=== PATIENT | female | born 1940 | race Caucasian/White ===

== ENCOUNTER 2016-07-05 10:37 | Day surgery (SDC) | payer MEDICARE, BC ==
[~2016-07-05] VITALS: Ht 160 cm; Wt 52.9 kg
[~2016-07-05 10:37] MED LIST: ALKA-SELTZER GO1 TE1 PO; ASPIRIN 81M81 MG/TA2 PO; BYSTOLIC5 MG PO; COMBIRESP IH; CYMBALTA 60MG60 MG PO; HYZAAR 50-12.1 UDTAB PO; KLOR-CON 1010 MEQ PO; LASIX 40MG TABL40 MG PO; LEVOXYL0.025 MG PO; LEVOXYL0.05 MG PO; LIPITOR 10MG10 MG PO; MILK OF MA400 MG/52 PO; MIRALAX PA17 GM/Dose PO; NEURONTIN300 MG/CAP PO; NORCO 325 MG-7.1 TAB PO; NORVASC 5MG5 MG/TAB PO; ORTHO BIOTIC PO; PEPTO BISM262 MG/15 PO; PLAVIX 75MG TAB75 MG PO; PRESERVISION1 SGL PO; PROTONIX 40MG T40 MG PO; RT SPIRIVA18 MCG IH; STIOLTO RESPIMAT4 GM IH; STOOL SOFTENER100 M2 PO; TRIMPEX100 MG PO; TYLENOL 325MG325 MG PO; TYLENOL 500MG500 MG PO; VITAMIN D 400400 IU PO; VITAMIN D32000 I1 PO
[2016-07-05 12:09] LABS: BASO # 0.1 (0.0-0.2); BASO % 0.7 % (0.0-2.0); EOS # 0.5 (0.0-0.7); GRAN # 6.7 (1.4-6.5); GRAN % 69.8 % (42.2-75.2); HEMATOCRIT 42.7 % (37.0-47.0); HEMOGLOBIN 14.7 g/dl (12.5-16.0); LYMPH # 1.6 (1.2-3.4); LYMPH % 16.8 % (20.0-51.0); MEAN CELL VOLUME 98 fl (80.0-100.0); MEAN CORPUSCULAR HEMOGLOBIN 34 pg (27.0-31.0); MEAN CORPUSCULAR HGB CONC 34 g/dl (33.0-37.0); MEAN PLATELET VOLUME 9.5 fl (7.4-10.4); MONO # 0.7 (0.1-0.6); MONO % 7.5 % (1.7-9.3); PLATELET COUNT 302 K/mm3 (130-400); RED BLOOD COUNT 4.38 M/mm3 (4.10-5.30); REDCELL DISTRIBUTION WIDTH-CV 14.6 % (11.5-14.5); WHITE BLOOD COUNT 9.6 K/mm3 (4.8-10.8)
[2016-07-05 12:25] LABS: CALCIUM 9.8 mg/dL (8.4-10.2); CREATININE, serum 0.63 mg/dL (0.52-1.25); POTASSIUM 3.7 mmol/L (3.4-5.0)
[2016-07-05 12:30] VITALS: BP 172/69; PULSE 73; TEMP 97.7
[2016-07-05 14:00] VITALS: BP 141/58; PULSE 63; TEMP 97.7
[2016-07-05 14:15] VITALS: BP 120/61; PULSE 63
[2016-07-05 14:30] VITALS: BP 139/56; PULSE 63
[2016-07-05 14:45] VITALS: BP 147/57; PULSE 63
[2016-07-05 15:15] VITALS: BP 137/65; PULSE 64
== END 2016-07-05 15:34 | disposition home or self-care (01) ==
LOC: SDCO 10:37
PROVIDERS: Urology
DX: N13.5 Crossing vessel and stricture of ureter without hydronephrosis (principal); Z85.038 Personal history of other malignant neoplasm of large intestine; F17.210 Nicotine dependence, cigarettes, uncomplicated; J40 Bronchitis, not specified as acute or chronic; J44.9 Chronic obstructive pulmonary disease, unspecified; J43.9 Emphysema, unspecified; I10 Essential (primary) hypertension; Z93.3 Colostomy status
CPT/HCPCS: C1769; C2617; J0690; J1100; J1885; J2405; J2704; J3010; J7120; Q9967

== ENCOUNTER 2017-01-05 06:44 | Day surgery (SDC) | payer MEDICARE, BC ==
[~2017-01-05] VITALS: Ht 160 cm; Wt 54.3 kg
[2017-01-05 07:42] VITALS: BP 160/63; PULSE 66; TEMP 98.2
[2017-01-05] MEDS ORDERED: TOPROL XL 50MG50 MG PO (08:18)
[2017-01-05] MEDS ORDERED: STIOLTO RESPIMAT IH (08:21)
[2017-01-05] MEDS ORDERED: SYNTHROID0.075 MG/T PO (08:23)
[2017-01-05] MEDS ORDERED: ZOLOFT 50MG50 MG PO ×2 (08:24→08:25)
[2017-01-05] MEDS ORDERED: LYRICA 50MG CAP50 MG PO (08:25)
[2017-01-05] MEDS ORDERED: CHANTIX 1MG1 MG PO (08:27)
[2017-01-05] MEDS ORDERED: LASIX 20MG TABL20 MG PO (08:27)
[2017-01-05] MEDS ORDERED: ASPIRIN 81M81 MG/TA2 PO (08:30)
[2017-01-05 10:20] VITALS: BP 128/50; PULSE 65; TEMP 98.2
[2017-01-05 10:35] VITALS: BP 128/52; PULSE 69
[2017-01-05 10:50] VITALS: BP 139/50; PULSE 66
[2017-01-05 11:05] VITALS: BP 141/46; PULSE 63
[2017-01-05 16:46] VITALS: BP 125/56; PULSE 66; TEMP 98.6
== END 2017-01-05 11:20 | disposition home or self-care (01) ==
LOC: SDCO 06:44
DX: N13.5 Crossing vessel and stricture of ureter without hydronephrosis (principal); J44.9 Chronic obstructive pulmonary disease, unspecified; I10 Essential (primary) hypertension; I73.9 Peripheral vascular disease, unspecified; M19.90 Unspecified osteoarthritis, unspecified site; F17.210 Nicotine dependence, cigarettes, uncomplicated; F32.9 Major depressive disorder, single episode, unspecified; K21.9 Gastro-esophageal reflux disease without esophagitis; E03.9 Hypothyroidism, unspecified; Z79.01 Long term (current) use of anticoagulants; Z90.49 Acquired absence of other specified parts of digestive tract; Z85.038 Personal history of other malignant neoplasm of large intestine; Z82.49 Family history of ischemic heart disease and other diseases of the circulatory system
CPT/HCPCS: C1769; C1894; C2617; J0690; J1100; J2405; J2704; J3010; J7120

== ENCOUNTER 2017-07-27 10:56 | Day surgery (SDC) | payer MEDICARE, BC ==
[~2017-07-27] VITALS: Ht 160 cm; Wt 57.5 kg
[~2017-07-27 10:56] MED LIST changes: +CHANTIX 1MG1 MG PO; +LASIX 20MG TABL20 MG PO; +LYRICA 50MG CAP50 MG PO; +SYNTHROID0.075 MG/T PO; +TOPROL XL 50MG50 MG PO; +ZOLOFT 50MG50 MG PO
[2017-07-27 12:00] VITALS: BP 177/61; PULSE 52; TEMP 98.7
[2017-07-27 13:18] VITALS: BP 166/60; PULSE 58; TEMP 98
[2017-07-27 13:33] VITALS: BP 177/70; PULSE 56
[2017-07-27 13:48] VITALS: BP 178/56; PULSE 55
[2017-07-27 14:03] VITALS: BP 168/61; PULSE 56
== END 2017-07-27 14:30 | disposition home or self-care (01) ==
LOC: SDCO 10:56
DX: N13.5 Crossing vessel and stricture of ureter without hydronephrosis (principal); I10 Essential (primary) hypertension; N39.0 Urinary tract infection, site not specified; J43.9 Emphysema, unspecified; J42 Unspecified chronic bronchitis; F17.210 Nicotine dependence, cigarettes, uncomplicated; K21.9 Gastro-esophageal reflux disease without esophagitis; F32.9 Major depressive disorder, single episode, unspecified; E03.9 Hypothyroidism, unspecified; M19.90 Unspecified osteoarthritis, unspecified site; Z88.1 Allergy status to other antibiotic agents; Z88.8 Allergy status to other drugs, medicaments and biological substances; Z88.0 Allergy status to penicillin; Z90.49 Acquired absence of other specified parts of digestive tract; Z79.82 Long term (current) use of aspirin; Z79.01 Long term (current) use of anticoagulants; Z86.73 Personal history of transient ischemic attack (TIA), and cerebral infarction without residual deficits; Z85.038 Personal history of other malignant neoplasm of large intestine; Z82.49 Family history of ischemic heart disease and other diseases of the circulatory system
CPT/HCPCS: C1769; C2617; J0690; J1100; J1885; J2405; J2704; J3010; J7120

== ENCOUNTER 2018-02-13 10:35 | Day surgery (SDC) | payer MEDICARE, BC ==
[~2018-02-13] VITALS: Ht 157.5 cm; Wt 62.7 kg
[2018-02-13] MEDS ORDERED: STIOLTO RESPIMAT4 GM IH (11:21)
[2018-02-13] MEDS ORDERED: LASIX 20MG TABL20 MG PO (11:29)
[2018-02-13] MEDS ORDERED: FLOMAX 0.40.4 MG/CAP PO (11:30)
[2018-02-13] MEDS ORDERED: CEPHALEXIN500 M1 PO (11:31)
[2018-02-13 11:58] VITALS: BP 173/58; PULSE 64; TEMP 97.6
[2018-02-13 14:35] VITALS: BP 132/45; PULSE 59; TEMP 97.2
[2018-02-13 14:50] VITALS: BP 151/49; PULSE 56
[2018-02-13 15:05] VITALS: BP 149/50; PULSE 58
[2018-02-13 15:20] VITALS: BP 137/52; PULSE 60
== END 2018-02-13 15:35 | disposition home or self-care (01) ==
LOC: SDCO 10:35
DX: N13.5 Crossing vessel and stricture of ureter without hydronephrosis (principal); Z85.038 Personal history of other malignant neoplasm of large intestine; J43.9 Emphysema, unspecified; I10 Essential (primary) hypertension; F17.210 Nicotine dependence, cigarettes, uncomplicated; K21.9 Gastro-esophageal reflux disease without esophagitis; F32.9 Major depressive disorder, single episode, unspecified; M19.90 Unspecified osteoarthritis, unspecified site; Z90.49 Acquired absence of other specified parts of digestive tract; Z79.82 Long term (current) use of aspirin; Z79.01 Long term (current) use of anticoagulants; Z88.1 Allergy status to other antibiotic agents; Z88.8 Allergy status to other drugs, medicaments and biological substances; Z88.2 Allergy status to sulfonamides; Z88.5 Allergy status to narcotic agent; Z88.0 Allergy status to penicillin; Z92.3 Personal history of irradiation; Z86.73 Personal history of transient ischemic attack (TIA), and cerebral infarction without residual deficits; Z82.49 Family history of ischemic heart disease and other diseases of the circulatory system
CPT/HCPCS: C1769; C2617; J0690; J1100; J2405; J2704; J3010; J7120

== ENCOUNTER 2018-11-13 10:30 | Day surgery (SDC) | payer MEDICARE, BC ==
[~2018-11-13] VITALS: Ht 157.5 cm; Wt 56.7 kg
[~2018-11-13 10:30] MED LIST changes: +CEPHALEXIN500 M1 PO; +FLOMAX 0.40.4 MG/CAP PO
[2018-11-13 11:19] VITALS: BP 135/51; PULSE 68; TEMP 98.5
[2018-11-13] MEDS ORDERED: TYLENOL 325MG325 MG PO (12:21)
[2018-11-13] MEDS ORDERED: MULTI VITAMINS1 TAB PO (12:24)
[2018-11-13] MEDS ORDERED: LIPITOR 10MG10 MG PO (12:27)
[2018-11-13] MEDS ORDERED: STRIVERDI2.5 MCG/Ac IH (12:31)
[2018-11-13] MEDS ORDERED: K-TAB20 PO (12:33)
[2018-11-13] MEDS ORDERED: SYNTHROID0.088 MG/T PO (12:35)
[2018-11-13] MEDS ORDERED: PREDNISONE 5MG5 MG PO (12:38)
[2018-11-13] MEDS ORDERED: XANAX .25M0.25 MG/TA PO (12:39)
[2018-11-13] MEDS ORDERED: IPRATROPIUM BROM3 M1 IH (12:43)
[2018-11-13 14:30] VITALS: BP 155/60; PULSE 68; TEMP 97.8
--- NOTE | 2018-11-13 14:30 | NUR ---
The patient arrived back to [facility] from the recovery room at this time. The patient appears alert and oriented and denies any pain or nausea at this time. The patient has tried some ice water and now requests some coffee and a muffin. The patient's post operative vital signs were started at this time. The patient's was brought back to be at her bedside. Call light is within reach. The patient denies any further needs at this time. Will continue to monitor the patient.
[2018-11-13 14:45] VITALS: BP 152/55; PULSE 67
--- NOTE | 2018-11-13 14:45 | NUR ---
The patient appears to be tolerating the food and drink well. The patient's vital signs appear stable. The patient denies wanting anything further to eat or drink at this time.
[2018-11-13 14:58] VITALS: TEMP 98.7
[2018-11-13 15:00] VITALS: BP 158/59; PULSE 72
--- NOTE | 2018-11-13 15:00 | NUR ---
The patient voices a desire to be discharged home and use the bathroom. The patient's IV to her right anecubital was removed and a pressure dressing was applied to the site. The patient was then assisted to the bathroom with the stand by assistance of the nursing staff and appeared to tolerate the activity well. The patient voided without difficulty.
--- NOTE | 2018-11-13 15:15 | NUR ---
Discharge instructions were reviewed with the patient at this time. She verbalized understanding and has no questions for the nurse at this time. The nursing staff is to assist the patient to get dressed while her gets their private vehicle.
--- NOTE | 2018-11-13 15:30 | NUR ---
The patient was escorted out via wheelchair to a private vehicle by CHRISTOPHER Swanson. The patient's belongings and discharge paperwork were sent with her. The patient's is present to drive her home.
== END 2018-11-13 15:30 | disposition home or self-care (01) ==
LOC: SDCO 10:30
DX: N13.5 Crossing vessel and stricture of ureter without hydronephrosis (principal); Z85.038 Personal history of other malignant neoplasm of large intestine; Z92.3 Personal history of irradiation; J43.9 Emphysema, unspecified; I10 Essential (primary) hypertension; Z86.73 Personal history of transient ischemic attack (TIA), and cerebral infarction without residual deficits; Z90.49 Acquired absence of other specified parts of digestive tract; Z79.82 Long term (current) use of aspirin; Z79.02 Long term (current) use of antithrombotics/antiplatelets; Z88.2 Allergy status to sulfonamides; Z88.8 Allergy status to other drugs, medicaments and biological substances; Z88.6 Allergy status to analgesic agent; F17.210 Nicotine dependence, cigarettes, uncomplicated; Z82.49 Family history of ischemic heart disease and other diseases of the circulatory system; Z88.0 Allergy status to penicillin; Z88.1 Allergy status to other antibiotic agents; Z88.5 Allergy status to narcotic agent; F32.9 Major depressive disorder, single episode, unspecified
CPT/HCPCS: C1769; C2617; J0690; J2704; J3010; J7120